=== PATIENT | male | born 1995 | race Hispanic/Latino ===

== ENCOUNTER 2023-11-06 08:11 | Inpatient (IN) | payer SELFPAY ==
[~2023-11-06] VITALS: Ht 167.6 cm; Wt 72.6 kg
[2023-11-06 09:04] LABS: BASOPHILS % 0.4 % (0.0-1.0); EOSINOPHILS # (AUTO) 0.3 (0.0-0.4); EOSINOPHILS % 3.2 % (0.0-6.0); HEMATOCRIT 46.3 % (38.2-49.6); HEMOGLOBIN 15.5 g/dL (14.0-18.0); LYMPHOCYTES # (AUTO) 3.7 (1.0-3.2); LYMPHOCYTES % 47.2 % (18.0-39.1); MEAN CORPUSCULAR HEMOGLOBIN 30.6 pg (28-32); MEAN CORPUSCULAR HGB CONC 33.5 g/dL (31-35); MEAN CORPUSCULAR VOLUME 91.3 fL (81-99); MONOCYTES # (AUTO) 0.8 (0.2-0.8); MONOCYTES % 10.4 % (4.4-11.3); NEUTROPHILS % 38.7 % (38.7-80.0); PLATELET COUNT 229 x10e3/uL (140-360); RED BLOOD COUNT 5.07 x10e6/uL (4.3-5.7); RED CELL DISTRIBUTION WIDTH 12.6 % (11.7-14.4); WHITE BLOOD COUNT 7.86 x10e3/uL (4.8-10.8)
[2023-11-06] MEDS: SODIUM CHLORIDE 0.9% 1000ML 1,000 ML IV STA (09:11)
[2023-11-06] MEDS: TETANUS/DIPHTHERIA TOX ADULT 0.5 ML SYR IM ONE (09:12)
[2023-11-06 09:14] LABS: INR 0.83; PARTIAL THROMBOPLASTIN TIME 26.7 seconds (23.8-35.5); PROTHROMBIN TIME 11.8 seconds (11.9-14.5)
[2023-11-06 09:24] LABS: ALANINE AMINOTRANSFERASE 14 IU/L (0-55); ALBUMIN 4.4 g/dL (3.5-5.0); ALBUMIN/GLOBULIN RATIO 1.3 (0.8-2.0); ALKALINE PHOSPHATASE 76 IU/L (40-150); BILIRUBIN,TOTAL 0.5 mg/dL (0.2-1.2); BLOOD UREA NITROGEN 13 mg/dL (7-26); BUN/CREATININE RATIO 13 (6-25); CALCIUM 8.7 mg/dL (8.4-10.2); CARBON DIOXIDE 22 mmol/L (22-29); CHLORIDE 106 mmol/L (98-107); CREATINE KINASE 479 IU/L (30-200); CREATININE, SERUM 0.98 mg/dL (0.72-1.25); EST GLOMERULAR FILTRATION RATE 106 ML/MIN (>=60); GLUCOSE 93 mg/dL (74-118); MAGNESIUM 2.2 MG/DL (1.3-2.1); SODIUM 140 mmol/L (136-145); TOTAL PROTEIN 7.8 g/dL (6.5-8.1)
[2023-11-06] MEDS: Morphine 4mg INJECTION 4 MG/ML INJ IV STA (09:27)
[2023-11-06] MEDS: ONDANSETRON HCL INJ 2MG/ML 2ML 2 MG/ML VIAL IV STA (09:27)
[2023-11-06] MEDS ORDERED: IOPAMIDOL 370 MG/ML 100 ML INFUS..BTL INJ ONE (10:05)
[2023-11-06 10:16] LABS: TROPONIN I < 0.05 ng/mL (0.0-0.40)
[2023-11-06] MEDS ORDERED: HYDROCODON-ACE1 EA12 PO (10:41)
[2023-11-06] MEDS: KETOROLAC TROMETHAMINE 30 MG/ML VIAL IV STA (11:11)
[2023-11-06] MEDS: SODIUM CHLORIDE 0.9% 1000ML 1,000 ML IV SCH (16:10)
[2023-11-06] MEDS: HYDROCODONE/APAP 5MG-325MG TAB PO PRN ×2 (16:11→21:58)
[2023-11-06 18:00] VITALS: TEMP 98.6
[2023-11-06 20:00] VITALS: BP_SYST 130; BP_SYST 141; BP_DIAS 80; BP_DIAS 82; PULSE 73; PULSE 76; RESP 16; RESP 18; TEMP 98.1; O2SAT 99
[2023-11-06 23:27] VITALS: BP 141/80; PULSE 76; RESP 18; TEMP 98.1; O2SAT 100
[2023-11-07] VITALS (8 sets, daily range): BP systolic 127–151; BP diastolic 78–97; PULSE 57–73; RESP 17–20; TEMP 97.3–98.7; O2SAT 97–100
[2023-11-07 07:07] LABS: BASOPHILS % 0.2 % (0.0-1.0); EOSINOPHILS # (AUTO) 0.1 (0.0-0.4); EOSINOPHILS % 0.6 % (0.0-6.0); HEMATOCRIT 43.9 % (38.2-49.6); HEMOGLOBIN 14.5 g/dL (14.0-18.0); LYMPHOCYTES # (AUTO) 1.7 (1.0-3.2); LYMPHOCYTES % 17.6 % (18.0-39.1); MEAN CORPUSCULAR HEMOGLOBIN 30.6 pg (28-32); MEAN CORPUSCULAR VOLUME 92.6 fL (81-99); MONOCYTES # (AUTO) 0.8 (0.2-0.8); MONOCYTES % 7.9 % (4.4-11.3); NEUTROPHILS % 73.5 % (38.7-80.0); PLATELET COUNT 200 x10e3/uL (140-360); RED BLOOD COUNT 4.74 x10e6/uL (4.3-5.7); RED CELL DISTRIBUTION WIDTH 12.5 % (11.7-14.4); WHITE BLOOD COUNT 9.59 x10e3/uL (4.8-10.8)
[2023-11-07 07:21] LABS: ALBUMIN 3.5 g/dL (3.5-5.0); ALBUMIN/GLOBULIN RATIO 1.3 (0.8-2.0); ANION GAP 10.8 mmol/L (8-16); BILIRUBIN,TOTAL 0.7 mg/dL (0.2-1.2); CALCIUM 8.4 mg/dL (8.4-10.2); CREATININE, SERUM 0.77 mg/dL (0.72-1.25); POTASSIUM 3.8 mmol/L (3.5-5.1); TOTAL PROTEIN 6.3 g/dL (6.5-8.1)
[2023-11-08] VITALS (7 sets, daily range): BP systolic 134–150; BP diastolic 77–97; PULSE 55–77; RESP 17–18; TEMP 97.3–98.4; O2SAT 96–100
[2023-11-09] VITALS (8 sets, daily range): BP systolic 136–150; BP diastolic 90–97; PULSE 53–67; RESP 16–18; TEMP 98.1–99; O2SAT 97–100
[2023-11-10] VITALS (8 sets, daily range): BP systolic 127–138; BP diastolic 77–92; PULSE 63–70; RESP 16–18; TEMP 97.9–98.6; O2SAT 99
[2023-11-10] MEDS: ONDANSETRON HCL INJ 2MG/ML 2ML 2 MG/ML VIAL IV PRN (06:43)
[2023-11-10] MEDS: Morphine 4mg INJECTION 4 MG/ML INJ IV PRN (06:43)
[2023-11-10] MEDS ORDERED: NEOSTIGMINE 1 MG/ML 10ML VIAL ONE (12:07)
[2023-11-10] MEDS ORDERED: DEXAMETHASONE SOD PHOS INJ 4 MG/ML SDV ONE (12:07)
[2023-11-10] MEDS ORDERED: ACETAMINOPHEN 1000 MG/100 ML IV ONE (12:07)
[2023-11-10] MEDS ORDERED: SEVOFLURANE INHAL SOLN 250 ML PEN BTL ONE (12:07)
[2023-11-10] MEDS ORDERED: PROPOFOL IV EMULSION 10 MG/ML 20 ML VIAL ONE (12:07)
[2023-11-10] MEDS ORDERED: ROCURONIUM BROMIDE 10 MG/ML 5ML VIAL IV ONE (12:07)
[2023-11-10] MEDS ORDERED: ONDANSETRON HCL INJ 2MG/ML 2ML 2 MG/ML VIAL ONE (12:07)
[2023-11-10] MEDS ORDERED: LIDOCAINE HCL 2% LOCAL INJ 5 ML SDV VIAL INJ ONE (12:07)
[2023-11-10] MEDS ORDERED: GLYCOPYRROLATE INJ 0.2 MG/ML VIAL ONE (12:07)
[2023-11-10] MEDS ORDERED: MIDAZOLAM HCL 2 MG/2 ML VIAL ONE (12:11)
[2023-11-10] MEDS ORDERED: FENTANYL CITRATE/PF 100MCG/2 ML INJ ONE (12:11)
[2023-11-10] MEDS ORDERED: ROPIVACAINE 0.5% 5 MG/ML 30 ML SDV ONE (14:15)
[2023-11-10] MEDS ORDERED: LIDOCAINE 2%/ EPINEPHRINE 20ML MDV ONE (14:15)
[2023-11-10] MEDS ORDERED: Vancomycin IV 0 MG ONE (14:23)
[2023-11-10] MEDS ORDERED: BUPIVACAINE HCL 0.5% INJ 30 ML VIAL INJ ONE (14:23)
[2023-11-10] MEDS ORDERED: Vancomycin IV 1 GM VIAL ONE (16:20)
[2023-11-10] MEDS: HYDROMORPHONE 1MG/1ML INJ ONE (16:55)
[2023-11-11] VITALS: BP 133/82; PULSE 65; RESP 18; TEMP 98.3; O2SAT 98
[2023-11-11] MEDS: KETOROLAC TROMETHAMINE 30 MG/ML VIAL IV ONE (02:16)
[2023-11-11 04:00] VITALS: BP 138/79; PULSE 70; RESP 18; TEMP 98.6; O2SAT 98
[2023-11-11] MEDS ORDERED: ONDANSETRON ODT4 MG PO (05:18)
[2023-11-11] MEDS ORDERED: TYLENOL325 M2 PO (05:18)
[2023-11-11 05:53] LABS: BASOPHILS % 0.1 % (0.0-1.0); HEMATOCRIT 44.8 % (38.2-49.6); HEMOGLOBIN 15.4 g/dL (14.0-18.0); LYMPHOCYTES # (AUTO) 1.6 (1.0-3.2); LYMPHOCYTES % 9.3 % (18.0-39.1); MEAN CORPUSCULAR HEMOGLOBIN 30.7 pg (28-32); MEAN CORPUSCULAR HGB CONC 34.4 g/dL (31-35); MEAN CORPUSCULAR VOLUME 89.4 fL (81-99); MONOCYTES # (AUTO) 1.3 (0.2-0.8); MONOCYTES % 7.6 % (4.4-11.3); NEUTROPHILS % 82.6 % (38.7-80.0); PLATELET COUNT 237 x10e3/uL (140-360); RED BLOOD COUNT 5.01 x10e6/uL (4.3-5.7); RED CELL DISTRIBUTION WIDTH 11.8 % (11.7-14.4)
[2023-11-11 06:24] LABS: ALBUMIN 3.9 g/dL (3.5-5.0); ALBUMIN/GLOBULIN RATIO 1.1 (0.8-2.0); BILIRUBIN,TOTAL 0.7 mg/dL (0.2-1.2); CALCIUM 9.2 mg/dL (8.4-10.2); CREATININE, SERUM 0.81 mg/dL (0.72-1.25); TOTAL PROTEIN 7.3 g/dL (6.5-8.1)
[2023-11-11] MEDS ORDERED: CEPHALEXIN500 MG PO (06:55)
[2023-11-11 08:00] VITALS: BP 143/98; PULSE 63; RESP 18; TEMP 97.7; O2SAT 98
[2023-11-11] MEDS ORDERED: MAG-OXIDE400 MG PO (08:04)
[2023-11-11] MEDS ORDERED: ASCORBIC ACID500 MG PO (08:04)
[2023-11-11] MEDS ORDERED: ZINC SULFATE50 M1 PO (08:04)
[2023-11-11] MEDS ORDERED: MULTIVITAMINS1 EAC8 PO (08:04)
[2023-11-11] MEDS ORDERED: CALCIUM CARBON500 MG PO (08:04)
[2023-11-11] MEDS: ASCORBIC ACID 500 MG TAB PO SCH (09:03)
[2023-11-11] MEDS: MAGNESIUM OXIDE 400 MG TAB PO SCH (09:04)
[2023-11-11] MEDS: ZINC SULFATE 50 MG CAP PO SCH (09:04)
[2023-11-11] MEDS: MULTIVITAMINS/MINERALS TAB PO SCH (09:04)
[2023-11-11] MEDS: OYST-CAL-D 500MG TABLET PO SCH (09:04)
[2023-11-11 09:24] VITALS: BP 143/98; PULSE 63; RESP 17; TEMP 97.7; O2SAT 98
[2023-11-11 11:57] VITALS: BP 140/96; PULSE 70; RESP 17; TEMP 98.7; O2SAT 100
== END 2023-11-11 12:07 | disposition home or self-care (01) | DRG 41 ==
LOC: EDBD 08:11 → ER 08:16 → ERHOLD 15:09 → MED/SURG 20:52 → MED/SURG2 11-08 09:25 → OBSVTOIN 11-08 13:09 → MED/SURG3 11-08 17:28
PROVIDERS: ADMIT Internal Medicine; ATTEND Internal Medicine
PROC: 0PSH04Z Reposition Right Radius with Internal Fixation Device, Open Approach (ICD-10-PCS; principal; 2023-11-10 14:22)
PROC: 01N50ZZ Release Median Nerve, Open Approach (ICD-10-PCS; 2023-11-10 14:22)
DX: S06.0XAA Concussion with loss of consciousness status unknown, initial encounter (principal); S52.501A Unspecified fracture of the lower end of right radius, initial encounter for closed fracture; S52.611A Displaced fracture of right ulna styloid process, initial encounter for closed fracture; K76.0 Fatty (change of) liver, not elsewhere classified; G56.01 Carpal tunnel syndrome, right upper limb; K40.90 Unilateral inguinal hernia, without obstruction or gangrene, not specified as recurrent; Z11.52 Encounter for screening for COVID-19; W13.2XXA Fall from, out of or through roof, initial encounter; Y99.0 Civilian activity done for income or pay; F17.210 Nicotine dependence, cigarettes, uncomplicated; Y92.69 Other specified industrial and construction area as the place of occurrence of the external cause
CPT/HCPCS: 36415; 70450; 70486; 71260; 72125; 74177; 76000; 80053; 82550; 82948; 83735; 84484; 85025; 85610; 85730; 90471; 90714; 99252; 99284; C1713; G0378; J0690; J1100; J1170; J1885; J2001; J2250; J2270; J2405; J2710; J2795; J3370; J7030; Q9967; U0002